=== PATIENT | male | born 1955 | race Caucasian/White ===

== ENCOUNTER → 2018-09-19 11:16 | Outpatient (CLI) | payer MEDICARE, OTHER, SELFPAY ==
[2018-09-19 11:47] LABS: Bacteria Urine None Seen; RBC Urine None Seen (0-5/HPF); WBC Urine None Seen (0-5/HPF)
[2018-09-19 12:04] LABS: Appearance Urine UA CLEAR; Bilirubin Urine UA NEGATIVE (NEGATIVE); Color Urine UA YELLOW; Glucose Urine UA NEGATIVE (Negative); Ketones Urine UA NEGATIVE (NEGATIVE); Leukocyte Esterase Urine UA NEGATIVE (NEGATIVE); Nitrite Urine UA NEGATIVE (Negative); Occult Blood Urine UA NEGATIVE (Negative); Protein Urine UA NEGATIVE (Negative); Urobilinogen Urine UA 0.2 E.U./dL (0.2); pH Urine UA 5.5 (4.5-8.0)
[2018-09-19 12:08] LABS: Culture Indicated Urine Cult Not Indicated; Urine Comments Microscopic Normal
[2018-09-19 12:57] LABS: Hemoglobin 16.9 g/dL (13.5-17.5); Mean Corpuscular HGB Conc 34.4 % (30-36); Mean Corpuscular Hemoglobin 33.5 PG (26-34); Mean Corpuscular Volume 97.3 fL (80-100); Platelet Count 168 X10^3/uL (150-400); Red Blood Cell Count 5.04 X10^6/uL (4.5-5.9); Red Cell Distribution Width 13.5 % (11.6-14.8); White Blood Cell Count 7.6 X10^3/uL (4.5-11.0)
[2018-09-19 13:20] LABS: BUN Creatinine Ratio 18.6 (6-22); Blood Urea Nitrogen 26 mg/dL (9-20); Calcium 9.8 mg/dL (8.4-10.2); Carbon Dioxide 30 mmol/L (22-32); Chloride 104 mmol/L (98-107); Estimated Glomerular Filt Rate 50.9 mL/min (>60); Glucose 88 mg/dL (80-110); HEMOLYSIS 40 (0-50); Sodium 141 mmol/L (137-145)
[2018-09-19 13:23] LABS: Hemoglobin A1C% w Est Avg Glu 5.5 % (4.0-6.0)
[2018-09-19 13:45] LABS: Potassium 5.4 mmol/L (3.4-5.1)
[2018-09-19 13:50] LABS: Transferrin 266 mg/dL (206-381)
== END ==
PROVIDERS: Visit Provider Orthopaedic Surgery
DX: Z01.818 Encounter for other preprocedural examination (principal); E61.1 Iron deficiency; N39.0 Urinary tract infection, site not specified; R73.9 Hyperglycemia, unspecified
CPT/HCPCS: 36415; 80048; 81001; 83036; 84466; 85027; 93005

== ENCOUNTER 2018-10-01 08:23 | Inpatient (IN) | payer MEDICARE, OTHER, SELFPAY ==
[2018-09-19 12:51] VITALS: BMI 32.9
[2018-10-01] VITALS (22 sets, daily range): BP systolic 96–134; BP diastolic 44–75; PULSE 50–70; RESP 9–18; TEMP 36.3–37.1; O2SAT 91–97; BMI 32.9
--- NOTE | 2018-10-01 06:00 | DI.RAD.S_ITS ---
PROCEDURE: XR KNEE LT 1TO2V INDICATIONS: post operative left knee TECHNIQUE: 2 view(s) of the knee acquired. COMPARISON: None. FINDINGS: Bones: Patient is status post knee joint arthroplasty. Hardware components are in expected positions. Visualized bony structures are intact. Soft tissues: Overlying postoperative changes are noted. IMPRESSION: Status post total left knee arthroplasty. Dictated by: Eliza Kolb M.D. on 10/01/2018 at 13:18 Approved by: Eliza Kolb M.D. on 10/01/2018 at 13:18
[2018-10-01] MEDS: LACTATED RINGERS 1,000 ML 42 ML IV ×2 (08:49→13:30)
[2018-10-01] MEDS: ACETAMINOPHEN 325 MG TABLET 975 MG PO ×3 (09:45→20:11)
[2018-10-01] MEDS: CELECOXIB 200 MG CAPSULE PO (09:46)
[2018-10-01] MEDS: PREGABALIN 75 MG CAPSULE PO (09:46)
--- NOTE | 2018-10-01 09:56 | PM.PREOP ---
Pre-operative Note Interval Note History & Physical reviewed/Exam performed by Physician: Yes Changes to H&P: No
--- NOTE | 2018-10-01 10:12 | P.OP_ITS ---
Operative Date/Time/Diagnoses Date of procedure: 10/01/18 Time of procedure: 12:30 Pre-op diagnosis: Left knee osteoarthritis Post-op diagnosis: same Procedure & Clinicians Procedure: Left total knee replacement Same procedure as scheduled: Yes Indications: The patient has had progressively worsening left knee pain with radiographic changes consistent with arthritis. Non-operative management has failed and the patient has requested total knee replacement. The risks, benefits and alternatives to surgery were discussed with the patient prior to proceeding. Risks discussed included, but were not limited to, failure to relieve pain, stiffness, infection, nerve damage, deep venous thrombosis, pulmonary embolism, stroke, coma, heart attack, permanent paralysis and , as well as the potential need for eventual revision of the prosthetic. Surgeon: Mervin De Jesus Refractory Worker: Garth Saeed Click Yes if Unassisted: No Anesthesia Type: General, Spinal and Local Operative Notes Findings: Severe osteoarthritis worst on the medial side. Closure Type: primary Specimen(s): none sent Prosthetic devices, grafts, tissues, transplants, or devices: Implants used in this procedure were manufactured by the [employer] and included the BCS II Journey total knee replacement with a size 5 left Oxinium femoral component, a size 5 left non porous tibial base plate, a 10 mm crosslinked polyethylene tibial insert and a 32 mm oval Nallely II patellar component. Applied: implant(s) Estimated Blood Loss (mL): 50 Blood products transfused: none Tourniquet time (min): 59 Procedure in detail: The patient was seen in the pre-operative area, where the left knee was identified as the operative site and this was marked with my initials. The patient received pre-operative antibiotics, and was taken to the operating room and placed on the operative table in the supine position. After satisfactory anesthesia, a multimedia authoring specialist out was performed. The left leg was encircled with a tourniquet about the proximal thigh, and the leg was prepared from the toes to the tourniquet with ChloroPrep in the usual fashion and draped through sterile drapes. The leg was elevated and exsanguinated with Eschmark bandage and the tourniquet inflated to 250 mmHg pressure. The knee was approached through an approximately 18 cm incision centered over the patella and carried into the knee through a medial parapatellar arthrotomy. The anterior osteophytes and soft tissues were removed. The rotational landmarks of [place]'s line and the transepicondylar axis were marked on the femur with electrocautery, and intramedullary guide holes for the femur and tibia were created. The distal femoral cut was made in 6 degrees of valgus using the in tramedullary guide at the primary cut setting. The proximal tibial cut was then made using the intramedullary guide, taking 9 mm of bone off the less involved side. The extension gap was checked and the rotation of the femoral component confirmed with the gap balancing blocks. The anterior, posterior and chamfer cuts were then made. The posterior osteophytes and soft tissues were then removed. The posterior capsule was injected with part of a mixture of 50 ml 0.25% Marcaine mixed with 20 ml Exparel and 4 mg of morphine for post-operative pain control. The remainder of this mixture was injected into the capsule and subcutaneous tissues during cement curing. The tibia was prepared with the rotation set by an extra medullary guide. Trial tibial and femoral components were then placed and the intercondylar notch cut through the femoral trial. Range of motion was 0-135 degrees, with good stability throughout the range. The patella was then cut to accommodate the patellar prosthetic. There was no need for a lateral release. The trials were then removed, and the femoral hole plugged with a bone plug. The bone was prepared with pulsatile lavage, and dried with a sponge. Cement was applied and the final prosthetics placed. Excess cement was removed during and after cement curing. After confirming there was no extruded cement posteriorly, the final tibial insert was placed. The knee was copiously irrigated and the tourniquet deflated. Hemostasis was obtained. The capsule was closed with interrupted # 2 polyester sutures. The subcutaneous layer was closed with 3-0 Vicryl, and the skin with a running 3-0 V-Lock suture and SteriStrips. An Aquacel Ag dressing was applied and the patient was taken to recovery having tolerated the procedure well. Complications: none Condition: stable Disposition: PACU Plan for aftercare: The patient will be maintained on a standard total knee replacement protocol with weight bearing as tolerated. The patient will receive aspirin and sequential compression devices for DVT prophylaxis. The patient will be discharged home when safe for the home environment.
[2018-10-01] MEDS: CEFAZOLIN 2 GM/100 ML FROZ.PIGGY IV (10:52)
--- NOTE | 2018-10-01 11:23 | SUR.OPER ---
Supine on padded OR bed. Pillow under head, arms secured on padded armboards <90 degree abduction. Safety belt across torso. Non-operative leg secured with tape over blanket over lower leg. Operative leg secured in DeMayo/Blane positioner. Foam padded brace at thigh of operative leg.
[2018-10-01] MEDS: TRANEXAMIC ACID 1,000 MG VIAL 1000 MG INJ ×2 (11:28→12:30)
[2018-10-01] MEDS: BUPIVACAINE 0.25% W/ EPI (PF) 10 ML VIAL INJ (11:28)
[2018-10-01] MEDS: BUPIVACAINE LIPOSOME 266 MG/20 ML VIAL INJ (11:29)
[2018-10-01] MEDS: MORPHINE 4 MG/ML INJ INJ (11:29)
--- NOTE | 2018-10-01 11:47 | SUR.OPER ---
Patient's upper and lower dentures removed by anesthesiologist following induction. Dentures placed in denture cup and labelled with patient sticker. Denture cup will go to PACU with patient by way of Circulating RN at end of procedure.
--- NOTE | 2018-10-01 13:06 | SUR.PHASEI ---
Assumed care of pt at 1305. pt laying in bed with eyes closed, easily arousable to voice when spoken to. drsg to surgical site c/d/i. pt able to move lower extremities, +strength, +senstation, cap refill wnl, and +pulse in bilateral feet. pt denies any pain at this time or nausea.
[2018-10-01] MEDS: fentaNYL 100 MCG/2 ML INJ 50 MCG IV ×2 (13:25→13:37)
[2018-10-01] MEDS: HYDROMORPHONE 2 MG INJ 0.5 MG IV (13:30)
--- NOTE | 2018-10-01 14:06 | SUR.PHASEI ---
pt transferred to acute care floor in stable condition. pt alert and talking to rn during transport. bedside report given to GINGER Gonzalez upon arrival to room. Transferred care of pt to ginger Gonzalez at that time.
--- NOTE | 2018-10-01 14:29 | PT.IPTN ---
Current Diagnoses Unilateral primary osteoarthritis, left knee (10/01/18) Surgery Performed Operation Date: 10/01/18 10:30 Actual Procedures p Total Knee Arthroplasty(Left) - Mervin De Jesus MD Physical Therapy Treatment Note M3 PT-IP Subjective Start: 10/01/18 14:28 Freq: NEEDED Status: Active Protocol: Document 10/01/18 14:28 RS (Rec: 10/01/18 14:29 RS [id number]) Subjective Physical Therapy Visit Type Type Administrative Note Notes RN reports be really wants to get up but can't feel the involved leg and only has minimal movement. Will hold PT eval until sensation and motor control are more intact.
[2018-10-01] MEDS: LACTATED RINGERS 1,000 ML 125 ML IV (15:42)
--- NOTE | 2018-10-01 15:42 | PT.IIE ---
Current Diagnoses Unilateral primary osteoarthritis, left knee (10/01/18) Surgery Performed Operation Date: 10/01/18 10:30 Actual Procedures p Total Knee Arthroplasty(Left) - Mervin De Jesus MD Surgical History (Last Updated 09/21/18 @ 08:18 by Thuy Kitchen, RN) History of cataract extraction with lens replacement (Acute) Hx of arthroscopic knee surgery (Acute) Hx of heart artery stent (Acute ~2007) Medical History (Last Updated 09/21/18 @ 08:18 by Thuy Kitchen RN) Arthritis (Acute) Bruises easily (Acute) CAD (coronary artery disease) (Acute) CKD (chronic kidney disease), stage III (Acute) Current every day smoker (Acute) Emphysema/COPD (Acute) HTN (hypertension) (Acute) Hyperlipidemia (Acute) Impaired vision (Acute) Left anterior hemiblock (Acute) Nocturia (Acute) Osteoarthritis of right knee (Acute) RBBB (right bundle branch block) (Acute) Shortness of breath (Acute) Smoker (Acute) Physical Therapy Inpatient Evaluation/Re-Eval M1 PT/OT-IP Prior Functional Status Start: 10/01/18 14:28 Freq: NEEDED Status: Active Protocol: Document 10/01/18 15:12 [facility] (Rec: 10/01/18 15:19 [facility] [id number]) Medical Review Prior Functional Status Medical History Reviewed Yes Diet/Fluid Consistency Regular Communication WNL Mobility and Gait Indep with ADLs w/o AD Social History Household Members spouse Living Arrangements House Number of Floors (Floors) Two Floors Number of Stairs To Enter/Railing? 2 steps with railing Home Environment Standard Height Toilet Walk in Shower Additional Social History Comment Built in shower chair; Pt has family next door who will help M2 PT-IP Current Condition Start: 10/01/18 14:28 Freq: NEEDED Status: Active Protocol: Document 10/01/18 15:12 [facility] (Rec: 10/01/18 15:19 [facility] [id number]) Physical Therapy Current Condition Current Condition Evaluation Date 10/01/18 Treatment Diagnosis LTKA Onset Date 10/01/18 Weight Bearing Status Weight Bearing Status Weight Bear as Tolerated M3 PT-IP Subjective Start: 10/01/18 14:28 Freq: NEEDED Status: Active Protocol: Document 10/01/18 15:12 [facility] (Rec: 10/01/18 15:19 [facility] [id number]) Subjective Physical Therapy Visit Type Type Initial Evaluation Visit Start Time 14:44 Visit Stop Time 15:10 Total Visit Minutes 26 Number of TECHNICAL IMPLEMENTATION LEAD Visits 0 Physical Therapy Visit Comments Patient Goals To go home DEBBIE Therapy Pain Assessment Pain When Pain Assessed During Mobility Pain Present Pain Present Pain Reported M4 PT-IP Mobility and Gait Start: 10/01/18 14:28 Freq: NEEDED Status: Active Protocol: Document 10/01/18 15:12 [facility] (Rec: 10/01/18 15:19 [facility] [id number]) PT-Bed Mobility Assessment Supine to Sit Supine to Sit Minimal Assistance Scooting Scooting to Edge of Bed Contact Guard Assistance PT-Transfer Assessment Sit to and From Stand Sit to and from Stand Minimal Assistance Equipment Transfer Assistive Device Gait Belt Front Wheeled Walker Orthotic/Prosthetic Devices or Brace: No Transfers Transfer Destination Chair Transfer Technique Stand Step Pivot Transfer Ability Level of Assist Minimal Assistance Comments Mobility Comments Pt did sit to stand with FWW with min A and cueing from bed then from bench to transfer to chair. Gait Assessment Gait Gait Assistance Required: Contact Guard Assist Distance (Feet) 10 Able to Maintain Weight Bearing Status Yes During Gait Assistive Devices Assistive Device Gait Belt Front Wheeled Walker Orthotic/Prosthetic Devices or Brace: No Gait Deviations General Gait Pattern Antalgic Decreased Stride Length Flexed Trunk Factors Limiting Gait Function Factors Limiting Gait Function Decreased Strength Limited Range of Motion Pain Poor Balance M5 PT-IP Objective Assessments Start: 10/01/18 14:28 Freq: NEEDED Status: Active Protocol: Document 10/01/18 15:12 [facility] (Rec: 10/01/18 15:42 [facility] [id number]) Orientation Orientation/Cognition Level of Alertness Alert Gross Range of Motion Lower Extremity ROM Assessment Left Impaired Strength Lower Extremity Strength Assessment Left Impaired M6 PT-IP Treatment Start: 10/01/18 14:28 Freq: NEEDED Status: Active Protocol: Document 10/01/18 15:12 [facility] (Rec: 10/01/18 15:42 [facility] [id number]) Physical Therapy Treatment Education Education Provided Weight Bearing Status Safety M7 PT-IP Assessment and Plan Start: 10/01/18 14:28 Freq: NEEDED Status: Active Protocol: Document 10/01/18 15:12 [facility] (Rec: 10/01/18 15:42 [facility] [id number]) PT Summary Assessment and Plan Potential Rehabilitation Potential Good Status of Condition at Evaluation Evolving Summary Impairments Pain ROM Strength Balance Bed Mobility Transfers Gait Activity Tolerance Assessment Summary Pt is very motivated with returning home and is doing well with his mobility for day of surgery. He is limited with his mobility d/t pain, weakness dec ROM and impaired gait mechanics. Goals Bed Mobility Goal Independent Transfer Goal Independent Gait Goal Standby Assistance Gait Distance 150ft Other Goals up/down 2 steps with rail SBA Days to Meet Goals 3 Frequency of Treatment Frequency Of Treatment Twice a Day Treatment Plan Physical Therapy Treatment Plan Bed Mobility Training Transfer Training Gait Training Therapeutic Exercise Balance Retraining Post Op Education Discharge Planning Neuromuscular Re-ed Recommendations To Nursing Amount of Assist Needed 1 Person Assist Discharge Recommendations PT Discharge Recommendations Home with Assistance Outpatient PT
[2018-10-01] MEDS: METOPROLOL ER 50 MG TABLET PO (17:43)
[2018-10-01] MEDS: ATORVASTATIN 20 MG TABLET 40 MG PO (17:44)
[2018-10-01] MEDS: LISINOPRIL 20 MG TABLET PO (17:44)
[2018-10-01] MEDS: IBUPROFEN 200 MG TABLET PO (19:44)
[2018-10-01] MEDS: ASPIRIN EC 81 MG TABLET PO (20:23)
[2018-10-01] MEDS: DOCUSATE 100 MG CAPSULE PO (20:23)
[2018-10-01] MEDS: OXYCODONE IR 5 MG TABLET PO (21:14)
[2018-10-01] MEDS: OXYCODONE IR 10 MG TABLET PO (22:04)
--- NOTE | 2018-10-01 22:46 | PC.NURSE ---
Pt alert and oriented x 3. 95%RA. no n/v. btx4. cms+. pt ambulated in hallways x 1. sba to the BR w/FWW. pain controlled with oxycodone 10mg and ice packs. call light in reach. bed alarm active.
--- NOTE | 2018-10-02 00:41 | PC.NURSE ---
2300- Pt POD#0 L total knee w/ aquasil dressing in place. Knee is wrapped in ae bandage; pulses intact and palpable. Pt states some pain w/ movement however tolerable at this time. LR stopped as pt is taking adequate PO w/ no nausea noted. Moving 1PA w/ FWW to bathroom; VSS w/ some wheexing noted in bilat lower bases.
[2018-10-02 04:32] VITALS: BP 109/66; PULSE 66; RESP 19; TEMP 36.6; O2SAT 93
[2018-10-02 05:51] LABS: Hematocrit 45.4 % (41-53)
[2018-10-02 07:28] VITALS: BP 140/70; PULSE 47; RESP 20; TEMP 36.1; O2SAT 95
--- NOTE | 2018-10-02 07:44 | PM.DS.1 ---
History of Present Illness Date Patient Seen: 10/02/18 Time Patient Seen: 07:44 Chief complaint: Total Knee Arthroplasty 24638 Narrative: The history and physical exam are contained in the chart in a previously completed note. Please refer to that note for this information. Discharge Providers Date of admission: 10/01/18 08:23 Discharge Date: 10/02/18 Consults: 10/01/18 14:19 Consult to Discharge Planning Routine Comment: Consult to Physical Therapy Evaluate & Treat Comment: Physician Instructions: postop TKA protocol Consult to Respiratory Therapy Evaluate & Treat Comment: Physician Instructions: Evaluate and treat Discharge provider: Mervin De Jesus MD Summary Discharge Diagnosis: Left knee osteoarthritis Hospital Course: The patient was admitted to the hospital and taken directly to the operating room on October 01, 2018 where he underwent a left total knee replacement without complication. He was ambulatory around the hospital unit in the evening and wishes to go home this morning. At the time of this dictation is anticipated he will be discharged later this morning. Status at Discharge Cognitive/behavioral status at discharge: oriented Functional status at discharge: uses cane/walker Overall status at discharge: patient is progressing back to baseline Time Spent with Patient Less than 30 minutes Exam Vital Signs (past 8 hours): - 10/02/18 04:32 Temperature 97.9 F Pulse Rate 66 Respiratory Rate 19 Blood Pressure 109/66 Pulse Oximetry 93 Oxygen Delivery Method Room Air Oxygen Flow Rate 0 Narrative Exam Narrative: Left knee exam shows a dressing with no drainage. No surrounding erythema. Calf is soft. Light touch and motion are intact in the left lower extremity. Objective Labs Result Diagrams: 10/02/18 04:55 Labs: Laboratory Results - last 24 hr 10/02/18 04:55 Hgb 15.0 Hct 45.4 Discharge Plan Discharge Plan Patient Disposition: Home Discharge Med Rec/Prescriptions Prescriptions: New acetaminophen 325 mg Tablet 975 mg PO TID 30 Days Qty: 270 RF: 0 aspirin 81 mg Tablet,Delayed Release (Dr/Ec) 81 mg PO BID 42 Days Qty: 84 RF: 0 oxycodone 5 mg Tablet 5 mg PO Q3HR PRN (Reason: Pain, Moderate (4-6)) Qty: 40 RF: 0 hydroxyzine pamoate 25 mg Capsule 25 mg PO Q6HR PRN (Reason: Nausea) Qty: 40 RF: 0 Continued atorvastatin 40 mg Tablet 40 mg PO QPM RF: 0 metoprolol succinate 50 mg Tablet Extended Release 24 Hr 50 mg PO QPM RF: 0 lisinopril 20 mg Tablet 20 mg PO QPM RF: 0 ibuprofen [Advil] 200 mg Tablet 200 mg PO Q4-6H PRN (Reason: Pain) RF: 0 umeclidinium 62.5 mcg/actuation Blister With Device 1 inh INHALATION QAM RF: 0 Discontinued aspirin [Aspirin Low Dose] 81 mg Tablet,Delayed Release (Dr/Ec) 81 mg PO QPM RF: 0 Follow up/Referrals: Merivn De Jesus MD [Physician] - 3-5 Days Provider Discharge Instructions Diet: Diet as Tolerated and Regular Activity: You may weightbear as tolerated on your left leg. Cold/Heat Therapy: Apply ice to the left knee for 15 minutes of every hour as needed for pain. Skin/Wound/Dressing Care Report to your healthcare provider any signs of infection, such as:: chills, fever, night sweats, increased pain, unusual drainage and unusual redness Dressing: Remove the Eric wrap 3 days postoperatively. You may shower with the deeper dressing in place. If the central strip of the deeper dressing gets saturated with either water or blood please contact the office. Visit Report/Discharge Packet Instructions: DI for Knee Replacement Stand Alone Forms: Surgery Discharge Discharge Data Attending Provider: Mervin De Jesus Admit Date/Time: 10/01/18 08:23
[2018-10-02] MEDS: ACETAMINOPHEN 325 MG TABLET 975 MG PO (07:45)
[2018-10-02] MEDS: ASPIRIN EC 81 MG TABLET PO (07:46)
[2018-10-02] MEDS: DOCUSATE 100 MG CAPSULE PO (07:46)
[2018-10-02] MEDS: IBUPROFEN 200 MG TABLET PO (07:46)
[2018-10-02] MEDS: OXYCODONE IR 5 MG TABLET PO (08:36)
--- NOTE | 2018-10-02 09:53 | PC.NURSE ---
Discharge Pt states pain controlled with oxy and tylenol/ibuprofen. Re-educated pt on importance of controlling pain and not waiting for it to get excrutiating. pt acknowledged understanding. d/c instructions provided to pt, aware to contact MD with any additional questions or concerns. PIV removed without issue. pt states he took all belongings with him. left in w/c with FILM NUMBERER escort.
--- NOTE | 2018-10-02 10:18 | PT.IPTN ---
Current Diagnoses Unilateral primary osteoarthritis, left knee (10/01/18) Surgery Performed Operation Date: 10/01/18 10:30 Actual Procedures p Total Knee Arthroplasty(Left) - Mervin De Jesus MD Physical Therapy Treatment Note M2 PT-IP Current Condition Start: 10/01/18 14:28 Freq: NEEDED Status: Discharge Protocol: Document 10/01/18 15:12 [facility] (Rec: 10/01/18 15:19 [facility] [email or web address]) Physical Therapy Current Condition Current Condition Evaluation Date 10/01/18 Treatment Diagnosis LTKA Onset Date 10/01/18 Weight Bearing Status Weight Bearing Status Weight Bear as Tolerated M3 PT-IP Subjective Start: 10/01/18 14:28 Freq: NEEDED Status: Discharge Protocol: Document 10/02/18 09:00 [facility] (Rec: 10/02/18 10:18 [facility] [id number]) Subjective Physical Therapy Visit Type Type Treatment Note Visit Start Time 09:00 Visit Stop Time 09:15 Total Visit Minutes 15 Notes Pt up in room walking on his own without walker. Number of CODING CONSULTANT Visits 1 Physical Therapy Visit Comments Patient Comments Pt ready to go home now. Patient Goals To go home DEBBIE Therapy Pain Assessment Pain When Pain Assessed During Mobility Pain Present Pain Present Pain Reported M4 PT-IP Mobility and Gait Start: 10/01/18 14:28 Freq: NEEDED Status: Discharge Protocol: Document 10/02/18 09:00 [facility] (Rec: 10/02/18 10:18 [facility] [id number]) PT-Transfer Assessment Sit to and From Stand Sit to and from Stand Standby Assistance Equipment Transfer Assistive Device Gait Belt Front Wheeled Walker Orthotic/Prosthetic Devices or Brace: No Transfers Transfer Destination Chair Transfer Technique Stand Step Pivot Transfer Ability Level of Assist Standby Assistance Gait Assessment Gait Gait Assistance Required: Standby Assistance Distance (Feet) 150 Able to Maintain Weight Bearing Status Yes During Gait Assistive Devices Assistive Device Gait Belt Front Wheeled Walker Orthotic/Prosthetic Devices or Brace: No Gait Deviations General Gait Pattern Antalgic Flexed Trunk Factors Limiting Gait Function Factors Limiting Gait Function Decreased Strength Limited Range of Motion Pain Comments Gait Comments Pt ambulated SBA with FWW. Stair Climbing Assessment Evaluation Level of Assist On Stairs Standby Assistance Devices Stair Climbing Assistive Devices Front Wheel Walker Technique/Endurance Stair Climbing Direction Ascend and Descend Stair Climbing Technique Step to Step Number of Steps Climbed 3 Query Text: Stair Climbing Set # Repetitions (reps) 2 Comments Stair Climbing Comments Pt is SBA with stair climbing. M5 PT-IP Objective Assessments Start: 10/01/18 14:28 Freq: NEEDED Status: Discharge Protocol: Document 10/01/18 15:12 [facility] (Rec: 10/01/18 15:42 [facility] [email or web address]) Orientation Orientation/Cognition Level of Alertness Alert Gross Range of Motion Lower Extremity ROM Assessment Left Impaired Strength Lower Extremity Strength Assessment Left Impaired M6 PT-IP Treatment Start: 10/01/18 14:28 Freq: NEEDED Status: Discharge Protocol: Document 10/02/18 09:00 [facility] (Rec: 10/02/18 10:18 [facility] [id number]) Physical Therapy Treatment Exercises Exercises Heel Slides Education Education Provided Weight Bearing Status Safety M7 PT-IP Assessment and Plan Start: 10/01/18 14:28 Freq: NEEDED Status: Discharge Protocol: Document 10/02/18 09:00 [facility] (Rec: 10/02/18 10:18 [facility] [id number]) PT Summary Assessment and Plan Potential Rehabilitation Potential Good Status of Condition at Evaluation Evolving Summary Impairments Pain ROM Strength Balance Bed Mobility Transfers Gait Activity Tolerance Assessment Summary Pt improved with all mobility. Pt successfully and safely climbed stairs. Goals Bed Mobility Goal Independent Transfer Goal Independent Gait Goal Standby Assistance Gait Distance 150ft Other Goals up/down 2 steps with rail SBA Days to Meet Goals 3 Frequency of Treatment Frequency Of Treatment Twice a Day Treatment Plan Physical Therapy Treatment Plan Bed Mobility Training Transfer Training Gait Training Therapeutic Exercise Balance Retraining Post Op Education Discharge Planning Neuromuscular Re-ed Recommendations To Nursing Amount of Assist Needed 1 Person Assist Discharge Recommendations PT Discharge Recommendations Home with Assistance Outpatient PT
--- NOTE | 2018-10-02 11:29 | CM.DANOTE ---
DCP/Assessment: Reviewed chart. Patient is a 63yr old male admitted to [facility] for left TKA performed on 10-01-[address] De Jesus. Primary payor is 1)Medicare 2)[employer]. No PCP indicated. Met with patient explained CM/SW role. Patient reports that he plans to discharge home today. Patient waiting for PT this AM so that he can be cleared to discharge. Patient reports that he has walker for home use. Patient resides with spouse [facility] [place]. Patient has outpatient therapy set up at [facility] in [place]. Patient denies having any d/c planning needs and reports that he has plenty of family support. P: Home today. ARMANDO Bass Discharge Planning/Care Management CM Discharge Assessment Start: 10/02/18 11:25 Freq: Status: Discharge Protocol: Document 10/02/18 11:25 KJS (Rec: 10/02/18 11:29 KJS [id number]) Discharge Planning Assessment Assigned Professor Of Voice ARMANDO Bass Contact Information Violeta Emery (spouse) Advance Directives? No: Declines further information Advance Directives on File No History Provided By Patient Medical Record Prior Living Arrangements House Household Members spouse Type of transporation used prior to Drives own vehicle admit Independent with ADL's Yes Is patient alert and oriented? Yes Caregiver for Another No DME Already Rented / Owned FWW / Walker Patient/Family Preference OP PT Therapy Comment Has outpatient therapy arranged at [facility] in [place]. Barriers to Discharge No Discharge Plan Home Transportation Arrangement Family to provide transport. Referrals Initiated None needed Whiteboard Updated in Patient Room with Yes name and ext. # of Professor Of Voice Review Status In Process Next Review Type Continued Stay Review Pre-Anesthesia Assessment Start: 09/19/18 12:51 Freq: Status: Complete Protocol: Document 09/19/18 12:51 CAB (Rec: 09/19/18 13:18 CAB [id number]) Pre-Anesthesia Assessment Patient Also Known As (AKA) Ed Patient Information Reviewed Via Chart Review Phone Assessment Assessment Completed With Patient Diagnostic Results BMP/CMP CBC EKG Comment Labs/ECG @ 09/19/18 Primary Care Provider Jaylen Seen Specialist in Last 12 Months Yes Specialist Seen Advertising Space Clerk Orthopedist Marketing Team Lead Comment Cardiac, Pulmonary notes scanned to record Primary Language [place] Citizen Chief Information Officer Required No Height 175.26 cm Weight 101.151 kg Body Mass Index (BMI) 32.9 Hearing Ability Hard of Hearing Visual Assist Glasses Dentition Type Full- Upper & Lower Barriers to Learning None Hx Anesthesia Reactions No Hx Family Anesthesia Reaction No Hx Malignant Hyperthermia No Hx Blood Transfusions No Anesthesia Review Requested Yes: PAC Courtesy re: Cardiopulmonary history Hose Suspender Cutter No alcohol intake current alcohol intake frequency holidays/special occasions only Smoking Status Current every day smoker Tobacco type cigarettes Smoking packs per day 1 Smoking pack-years 30 Substance Use Type does not use Pain Present Pain Reported Musculoskeletal Symptoms Abnormal Gait Difficulty Walking Joint Pain History of Falling (Recent or History of No ) Patient is completely paralyzed or No completely immobile Mental Status Oriented to own ability Is patient on oxygen? No Does patient have [place]/SOB Yes: [place], hx COPD/emphysema Hx Sleep Apnea No Comment Pulmonary note 07/04/18 scanned to record Currently Taking a Beta Rei Yes: Metoprolol Can You Climb a Flight of Stairs Without Yes SOB Hx Chest Pain No Hx SOB Yes: S[place]HER[place], hx COPD/emphysema Hx Syncope or Dizziness No Anti-Coagulant Therapy No Has a Advertising Space Clerk Yes: [facility] -last visit 10/09/17 Cardiac Testing Yes: Nuc perfusion 11/03/17, ECHO 10/11/17 Hx Pacemaker/ICD No Pacemaker Rep Required? No Comment Cardiac records scanned to record Diet Type At Home Regular dysphagia No Urinary Catheter Present No Hx Urinary Self Catheterization No Diabetes No Hx Drug Resistant Organism No Presence of External or Internal Medical Yes: Cardiac stent x 2, Devices bilateral eye lens Have you traveled outside the [facility] in the last 30 days? Marital Status Lives With spouse Prior Living Arrangements House Number of Floors (Floors) Two Floors Support System Family Spouse Does the Patient Have Assistance After Yes Surgery Patient Discharge Plan Description Return Home Comment Pt advised possible same day discharge per surgeon's office Feels Safe in Current Environment Yes Been Physically Hurt or Threatened By a No Person in Current Environment Do you have thoughts of harming yourself None or others? Are you currently considering suicide? No Do you have a plan to hurt yourself or No Plan others? Do You Have Any Spiritual Beliefs That No May Affect Your HC Choices? Do You Have Any Cultural Practices That No May Affect Your HC Choices? Who Can We Speak to About Patient's Care Family, friends Identifying Code for Release of Patient Declines to issue Information Health Care Proxy/Next of Kin Violeta () Health Care Proxy Emergency Contact Name Violeta () Emergency Contact Comment currently in [place] on [place] ranch w/calving season Advance Directives? No: Declines further information Advance Directives on File No Power of Fire Safety Director No PAC Instructions Durable medical equipment Medications to take/avoid Nasal antibiotic No ETOH/petroleum product on skin DOS NPO Post-op transportation Pre-surgical wash Sturdy shoes/comfortable clothes Do not bring valuables and remove jewelry
== END 2018-10-02 09:50 | disposition home or self-care (01) | DRG 470 ==
PROVIDERS: Admitting Provider Orthopaedic Surgery; Visit Provider Orthopaedic Surgery
PROC: 0SRD0JZ Replacement of Left Knee Joint with Synthetic Substitute, Open Approach (ICD-10-PCS; CPT 27447; principal; 2018-10-01 10:30)
DX: M17.12 Unilateral primary osteoarthritis, left knee (principal); I10 Essential (primary) hypertension; E78.5 Hyperlipidemia, unspecified; F17.210 Nicotine dependence, cigarettes, uncomplicated
CPT/HCPCS: 36415; 73560; 85014; 85018; 97116; 97162; 99406; C1776; C9290; J0690; J1100; J1170; J2250; J2270; J2405; J2704; J3010